=== PATIENT | male | born 1990 | race Caucasian/White ===

== ENCOUNTER → 2016-10-15 | Day surgery (SDC) | payer OTHER ==
[~2016-10-15] VITALS: Ht 185.4 cm; Wt 109.6 kg
[~2016-10-15] MED LIST: NORCO 5-325 TA1 EACH PO
--- NOTE | ~2016-10-15 | OR ---
PATIENT'S NAME: [facility] AGE: 26 Y [address] ROOM: [place] [address] LOCATION: [facility] – [place] ADMIT DATE: 10/15/2016 OR/Procedure Report DISCHARGE DATE: FAMILY PHYSICIAN: Abram Crawford MD ATTENDING PHYSICIAN: Randell Salguero SURGEON: Randell Salguero MD INDUSTRIAL AUTOMATION ENGINEER: Rush Boogie PA-C. DATE OF PROCEDURE: 10/15/2016 PREOPERATIVE DIAGNOSIS: Left inguinal hernia. POSTOPERATIVE DIAGNOSIS: Recurrent direct left inguinal hernia. PROCEDURE PERFORMED: Robotic-assisted laparoscopic repair of recurrent left inguinal hernia. ANESTHESIA: General endotracheal. ESTIMATED BLOOD LOSS: Minimal. REASON FOR PROCEDURE: The patient is a 26-year-old male, who recently presented with a painful bulge in the left groin. On exam, he was felt to have a hernia. The patient had a hernia repair as a child. He was not sure what side. We discussed options and he elected to proceed with repair of this. FINDINGS: The patient was found to have a recurrent hernia on the left side. It was in the direct space. He actually had some incarcerated preperitoneal fat that was somewhat difficult to reduce. He was repaired with a 3DMax mesh. PROCEDURE IN DETAIL: The patient was taken to the operating suite and placed in the supine Trendelenburg position. The abdomen was prepped with ChloraPrep and sterilely draped. Marcaine was infiltrated into the incision sites. A 1 cm incision was made in the upper midline. The fascia was grasped and elevated and a Veress needle was used to obtain a pneumoperitoneum. An 8 mm trocar was then passed across the abdominal wall. Next, under direct visualization, a 12-mm robotic trocar was placed in the right upper quadrant and another 8 mm trocar in the left upper quadrant. The robot was then docked to the trocars and targeted on the left inguinal hernia. Some sigmoid adhesions were taken down from the peritoneum. We then incised the peritoneum from the anterior and superior iliac spine medially to the medial umbilical ligament. The peritoneum was then mobilized down towards the hernia. The patient had a direct recurrent hernia with some fairly incarcerated preperitoneal fat that was somewhat difficult to reduce. Eventually, we were able to free this up and expose the defect completely. A cord lipoma was PATIENT'S NAME: MOISES [facility] AGE: 26 Y [address] ROOM: [place] [address] LOCATION: [facility] [place] ADMIT DATE: 10/15/2016 OR/Procedure Report DISCHARGE DATE: FAMILY PHYSICIAN: Abram Crawford MD ATTENDING PHYSICIAN: Randell Salguero identified in the indirect space. This was reduced as well. Once the entire flap was mobilized, the left-sided 3DMax mesh was placed into the defect. It seemed to lay flush against the abdominal wall. Two sutures were used to tack this to Rubén's ligament, and then another stitch was placed in the more superior lateral portion of the mesh. These were Vicryl sutures. The mesh seemed to lay flat, and elevating the peritoneum did not pull the mesh at all. The peritoneum was then closed with a running 2-0 V-Loc suture. A Vicryl suture was then placed in the fascia at the 12-mm trocar site. The skin incisions were all closed with subcuticular Monocryl. Benzoin, Steri-Strips, and gauze dressings were applied. POSTPROCEDURE PLAN: The patient will be sent to recovery and discharged home when awake and alert. He is to avoid any heavy lifting or strenuous activity. We gave him a prescription for 30 Raymond for pain control. I will see him in [place] the next time I am down there. MD LUX SIERRA/crystall /[id number] d: 10/15/16 1441 t: 10/18/16 0944, OPERATIVE SUMMARY
== END | disposition disaster alternative care site (69) ==
LOC: GPOC 10-12 14:00 → GSDC 08:08
PROC: 0YU64JZ Supplement Left Inguinal Region with Synthetic Substitute, Percutaneous Endoscopic Approach (ICD-10-PCS; principal; 2016-10-15)
PROC: 8E0W4CZ Robotic Assisted Procedure of Trunk Region, Percutaneous Endoscopic Approach (ICD-10-PCS; 2016-10-15)
DX: K40.31 Unilateral inguinal hernia, with obstruction, without gangrene, recurrent (principal); Z98.890 Other specified postprocedural states
CPT/HCPCS: C1781; J0690; J1100; J2001; J2405; J3010; J7120